=== PATIENT | female | born 1990 | race Caucasian/White ===

== ENCOUNTER 2017-01-26 23:53 | Emergency (ER) | payer OTHER ==
[~2017-01-26] VITALS: Ht 157.5 cm; Wt 67.5 kg
[~2017-01-26 23:53] MED LIST: NOHOMEMEDS
[2017-01-27 01:55] VITALS: BP 161/112
== END 2017-01-27 01:55 | disposition home or self-care (01) ==
LOC: EXP 23:53 → EME 23:53 → EXP 01-27 01:55
DX: Z71.1 Person with feared health complaint in whom no diagnosis is made (principal); Z88.1 Allergy status to other antibiotic agents
CPT/HCPCS: 99281; 99282

== ENCOUNTER 2017-05-27 11:30 | Emergency (ER) | payer OTHER ==
[~2017-05-27] VITALS: Ht 157.5 cm; Wt 67.0 kg
[2017-05-27] MEDS ORDERED: MOTRIN800 MG PO (12:58)
[2017-05-27] MEDS ORDERED: FLEXERIL10 MG PO (12:58)
[2017-05-27] MEDS ORDERED: HYDROCHLOROTHIA25 MG PO (13:21)
[2017-05-27] MEDS ORDERED: PORTIA 28 DA1 TABLET PO (13:21)
[2017-05-27] MEDS ORDERED: PROPRANOLOL HC120 MG PO (13:21)
[2017-05-27 13:28] VITALS: BP 125/92
== END 2017-05-27 13:29 | disposition home or self-care (01) ==
LOC: EME 11:30
DX: S86.812A Strain of other muscle(s) and tendon(s) at lower leg level, left leg, initial encounter (principal); X58.XXXA Exposure to other specified factors, initial encounter
CPT/HCPCS: 93971; 99281; 99284